=== PATIENT | female | born 1935 | race Caucasian/White ===

== ENCOUNTER → 2016-09-10 | Outpatient (CLI) | payer MEDICARE, BC ==
[~2016-09-10] MED LIST: FERROUS SU325 MG/TAB PO; FOLIC ACID 40400 MCG PO; MERIBIN5 MG PO; MULTI VITAMINS1 TAB PO; VITAMIN B122500 MCG PO; VITAMIN C500 MG PO; VITAMIN D1000 IU PO
== END ==
LOC: MC.RAD 11:10
DX: Z12.31 Encounter for screening mammogram for malignant neoplasm of breast (principal)

== ENCOUNTER → 2017-09-15 | Outpatient (CLI) | payer MEDICARE, BC | LOC: COL.VAS 10:23 | DX: E78.00 Pure hypercholesterolemia, unspecified (principal); H53.9 Unspecified visual disturbance; I87.2 Venous insufficiency (chronic) (peripheral); R06.09 Other forms of dyspnea ==

== ENCOUNTER → 2017-10-15 | Outpatient (CLI) | payer MEDICARE, BC | LOC: MC.RAD 10:49 | DX: Z12.31 Encounter for screening mammogram for malignant neoplasm of breast (principal) ==

== ENCOUNTER 2018-06-28 05:09 | Inpatient (IN) | payer MEDICARE, BC ==
[~2018-06-28] VITALS: Ht 165.1 cm; Wt 107.7 kg
[2018-06-29 08:50] VITALS: BP 136/46; PULSE 50; TEMP 97.8
--- NOTE | 2018-06-29 09:30 | NUR ---
Pt arrived to unit, settled and oriented to room and schedule. Physcial assessment completed and WNL. Pt does c/o SOB at times, none presently, pt on RA. Tele applied. INT started to , site free of redness, swelling. pt at bedside. Education provided on Afib patho adn treatmnet. No furtehr needs, call light in reach
[2018-06-29] MEDS ORDERED: COSAMIN DS 4001 CA1 PO (09:41)
[2018-06-29] MEDS ORDERED: ZEBETA10 MG PO (09:43)
[2018-06-29] MEDS ORDERED: ELIQUIS 5MG PO (09:43)
[2018-06-29 09:45] LABS: INR 1.5 (0.8-3.0); PROTHROMBIN TIME 17.4 SECONDS (9.7-12.8)
[2018-06-29 09:46] LABS: BASO % 0.6 % (0.0-2.0); EOS # 0.2 (0.0-0.7); EOS % 2.6 % (0-4.0); GRAN % 57.8 % (42.2-75.2); LYMPH # 1.5 (1.2-3.4); LYMPH % 21.9 % (20.0-51.0); MEAN CELL VOLUME 95 fl (80.0-100.0); MEAN CORPUSCULAR HEMOGLOBIN 31 pg (27.0-31.0); MEAN CORPUSCULAR HGB CONC 33 g/dl (33.0-37.0); MEAN PLATELET VOLUME 11.2 fl (7.4-10.4); MONO # 1.2 (0.1-0.6); MONO % 16.8 % (1.7-9.3); PLATELET COUNT 174 K/mm3 (130-400); RED BLOOD COUNT 3.87 M/mm3 (4.10-5.30); REDCELL DISTRIBUTION WIDTH-CV 14.2 % (11.5-14.5)
[2018-06-29 09:47] LABS: HEMATOCRIT 36.8 % (37.0-47.0)
[2018-06-29 09:51] LABS: ALBUMIN 3.7 gm/dL (3.5-5.0); BILIRUBIN,TOTAL 0.3 mg/dL (0.0-1.0); CALCIUM 9.4 mg/dL (8.4-10.2); CREATININE, serum 0.8 mg/dL (0.52-1.25); POTASSIUM 4.3 mmol/L (3.4-5.0); TOTAL PROTEIN 6.2 gm/dL (6.4-8.2)
[2018-06-29 11:58] VITALS: BP 144/55; PULSE 46; TEMP 97.4
[2018-06-29 15:34] VITALS: BP 145/48; PULSE 46; TEMP 98.2
--- NOTE | 2018-06-29 17:13 | NUR ---
Through shift pt has denied SOB, chest pain, palpitations. Pt has had steady stream of visitors. she walked hallways briefly. VItals stable. no concerns, call light in reach
--- NOTE | 2018-06-29 19:19 | NUR ---
Report given to Bianca BOYCE, pt denies needs
[2018-06-29 19:20] VITALS: BP 153/53; PULSE 63; TEMP 97.6
[2018-06-29 20:00] VITALS: BP 153/53; PULSE 53; TEMP 97.6
--- NOTE | 2018-06-29 21:50 | NUR ---
Patient assessed at this time. Denies having pain and discomfort. Denies having SOB at rest, but states she does with exertion. Wears CPAP at night with supplemental oxygen at 2.5 L/min. RT notified patient brought personal CPAP in and requested set up. Denies havign any questions or concerns at this time. Sitting up in recliner watching TV. Call light is within reach.
[2018-06-29 23:38] VITALS: BP 142/64; PULSE 46; TEMP 98.8
--- NOTE | 2018-06-30 02:27 | NUR ---
Call placed to Dr. Ross to update on heart rate. Heart rate had been staying in the 40s, but has been staying between 35-38 for a while, with a dip noted as low as 32. No new orders received at this time.
[2018-06-30 03:36] VITALS: BP 142/51; PULSE 41; TEMP 98.6
--- NOTE | 2018-06-30 03:53 | NUR ---
Resting in bed withe eyes closed. Continues to have bradycardia, mid 30s to low 40s. Denies feeling lightheaded, dizzy, SOB, and chest pain. Denies having any questions or concerns at ths time. Resting in bed with eyes closed at this time. Call light is within reach.
--- NOTE | 2018-06-30 06:12 | NUR ---
Continues to deny having pain and discomfort. Heart rate continues to run in the mid to upper 30s. Voices no needs or concerns. Wearing CPAP (brought from home) with 2.5 L/min of supplemental oxygen. Resting in bed with eyes closed at this time. Call light is within reach.
[2018-06-30 06:16] LABS: BASO # 0.1 (0.0-0.2); BASO % 0.7 % (0.0-2.0); EOS # 0.2 (0.0-0.7); EOS % 2.8 % (0-4.0); GRAN # 4.5 (1.4-6.5); GRAN % 59.4 % (42.2-75.2); HEMOGLOBIN 11.3 g/dl (12.5-16.0); LYMPH # 1.7 (1.2-3.4); LYMPH % 22.4 % (20.0-51.0); MEAN CELL VOLUME 95 fl (80.0-100.0); MEAN CORPUSCULAR HEMOGLOBIN 31 pg (27.0-31.0); MEAN CORPUSCULAR HGB CONC 32 g/dl (33.0-37.0); MEAN PLATELET VOLUME 11.2 fl (7.4-10.4); MONO # 1.1 (0.1-0.6); MONO % 14.3 % (1.7-9.3); PLATELET COUNT 169 K/mm3 (130-400); RED BLOOD COUNT 3.69 M/mm3 (4.10-5.30); REDCELL DISTRIBUTION WIDTH-CV 14.1 % (11.5-14.5)
[2018-06-30 06:27] LABS: CALCIUM 8.9 mg/dL (8.4-10.2); CREATININE, serum 0.74 (0.52-1.25); POTASSIUM 4.1 mmol/L (3.4-5.0)
--- NOTE | 2018-06-30 06:31 | NUR ---
Patient has been receiving PRN Ativan per detox protocol about every 2 hours throughout the night. Received PRN Hydralazine twice for elevated BP. Received PRN Zofran twice as requested for nausea. Denies having any questions or concerns at this time. Resting in bed with eyes closed at this time. Call light is within reach.
[2018-06-30 07:24] VITALS: BP 129/35; PULSE 42; TEMP 97.5
--- NOTE | 2018-06-30 08:38 | NUR ---
Pt assessment complete. Pt sitting up in chair upon entry, she is A/O x3. Her breathing is even and unlabored on RA. Pt reports dyspnea on exertion, states this has been happening lately. Pt denies any pain. No palpitations or dizziness. Pt denies any needs at this time. Call light within reach.
--- NOTE | 2018-06-30 10:05 | NUR ---
Initial visit; Patient thanked for stopping and states that she is here for Sotalol trial and doing well.
[2018-06-30 12:31] VITALS: BP 116/42; PULSE 45; TEMP 98.3
--- NOTE | 2018-06-30 13:21 | NUR ---
SW met with patient about discharge plans. Patient lives independently at home with her . Patient's PCP is Dr Lee and she obtains prescriptions from [facility]. Patient denies difficulties obaining medications. Patient is independent with her ADLs and does not use any DME or home health services. Patient has a DPOA in EMR. SW does not anticipate any discharge needs.
[2018-06-30 15:08] VITALS: BP 129/38; PULSE 51; TEMP 97.6
[2018-06-30 19:08] VITALS: BP 134/48; PULSE 50; TEMP 98.5
--- NOTE | 2018-06-30 19:19 | NUR ---
Pt had uneventful day. No chest pain or palpitations. VSS. POC discussed with patient who verbalized understanding. Pt sitting playing cards with at this time.
--- NOTE | 2018-06-30 20:15 | NUR ---
Patient sitting in recliner watching tv. Assessment completed- denies pain, lungs clear, abdominal sounds active, pulses +3, some BLE edema trace. GIven evening medications. On telemetry, NSR with HR in 50-60s. No further needs at this time.
[2018-06-30 23:01] VITALS: BP 143/44; PULSE 50; TEMP 98.3
--- NOTE | 2018-07-01 | NUR ---
THIS NURSE RESUMED CARES FOR THIS PT AT THIS TIME. PT STATED SHE DIDNT NEED ANYTHING. PT WEARING PERSONAL CPAP AND LAYING IN BED.
[2018-07-01 03:36] VITALS: BP 115/60; PULSE 46; TEMP 98.3
[2018-07-01 06:02] LABS: BASO # 0.1 (0.0-0.2); BASO % 0.7 % (0.0-2.0); EOS # 0.2 (0.0-0.7); EOS % 2.5 % (0-4.0); GRAN # 4.3 (1.4-6.5); GRAN % 56.6 % (42.2-75.2); LYMPH # 1.9 (1.2-3.4); LYMPH % 24.3 % (20.0-51.0); MEAN CELL VOLUME 95 fl (80.0-100.0); MEAN CORPUSCULAR HEMOGLOBIN 30 pg (27.0-31.0); MEAN CORPUSCULAR HGB CONC 32 g/dl (33.0-37.0); MEAN PLATELET VOLUME 11.5 fl (7.4-10.4); MONO # 1.2 (0.1-0.6); MONO % 15.5 % (1.7-9.3); PLATELET COUNT 172 K/mm3 (130-400); RED BLOOD COUNT 3.62 M/mm3 (4.10-5.30)
[2018-07-01 06:07] LABS: HEMATOCRIT 34.3 % (37.0-47.0)
[2018-07-01 06:16] LABS: CALCIUM 8.9 mg/dL (8.4-10.2); CREATININE, serum 0.76 (0.52-1.25)
--- NOTE | 2018-07-01 07:00 | NUR ---
Received bedside report at shift change. Pt in bed with CPAP on and comfortable. No complaints at this time. Pt had no needs from nursing staff. Will continue to monitor.
--- NOTE | 2018-07-01 07:08 | NUR ---
PT HAD NO ISSUES OR CONERNS VOICED THIS AM. PLEASENT AND COOPERATIVE WITH CARES. APPEARED TO HAVE SLEPT WELL
[2018-07-01 07:32] VITALS: BP 155/68; PULSE 50; TEMP 97.6
--- NOTE | 2018-07-01 10:41 | NUR ---
Assessment documented with continued low heart rate due to Sotalol. Pt had no complaints of pain and received medications well. Upon flushing peripheral IV, noticed the line was infiltrated but will wait to start a new IV until potential doctor orders for new IV meds. Pt up to eat breakfast independently. Will continue to monitor.
[2018-07-01 11:24] VITALS: BP 137/47; PULSE 45; TEMP 97.8
[2018-07-01] MEDS ORDERED: ZEBETA 5MG5 MG PO (11:55)
[2018-07-01] MEDS ORDERED: TAMBOCOR 1100 MG/TAB PO (11:55)
--- NOTE | 2018-07-01 13:28 | NUR ---
Discharge teaching completed at this time. Discharge packet given, reviewed new patient medications sent to pharmacy, follow up appointment. Pt discharged with packet, all belongings. INT d/c'd by student nurse, shahla intact. Answered all questions. Escorted out via w/c by myself with all belongings, to drive home, criteria met.
== END 2018-07-01 13:37 | disposition home or self-care (01) | DRG 309 ==
LOC: MEDICAL 06-29 05:08
PROVIDERS: ADMIT Internal Medicine Cardiovascular Disease
DX: I48.0 Paroxysmal atrial fibrillation (principal); C85.90 Non-Hodgkin lymphoma, unspecified, unspecified site; Z79.01 Long term (current) use of anticoagulants; E78.00 Pure hypercholesterolemia, unspecified; G47.33 Obstructive sleep apnea (adult) (pediatric); I10 Essential (primary) hypertension; I49.3 Ventricular premature depolarization; R00.1 Bradycardia, unspecified; T44.7X5A Adverse effect of beta-adrenoreceptor antagonists, initial encounter

== ENCOUNTER → 2018-07-07 | Outpatient (CLI) | payer MEDICARE, BC ==
[~2018-07-07] MED LIST changes: +COSAMIN DS 4001 CA1 PO; +ELIQUIS 5MG PO; +TAMBOCOR 1100 MG/TAB PO; +ZEBETA 5MG5 MG PO; +ZEBETA10 MG PO
== END ==
LOC: COL.VAS 08:41
DX: I48.0 Paroxysmal atrial fibrillation (principal); I08.1 Rheumatic disorders of both mitral and tricuspid valves

== ENCOUNTER 2018-10-04 05:56 | Day surgery (SDC) | payer MEDICARE, BC ==
[~2018-10-04] VITALS: Ht 165.2 cm; Wt 101.2 kg
[2018-10-04] VITALS (13 sets, daily range): BP systolic 104–140; BP diastolic 42–55; PULSE 45–116; TEMP 97.4–98.3
[~2018-10-04 05:56] MED LIST changes: +B-121000 MCG PO; -VITAMIN B122500 MCG PO
[2018-10-04 06:58] LABS: HEMOGLOBIN 12.4 g/dl (12.5-16.0); MEAN CELL VOLUME 94 fl (80.0-100.0); MEAN CORPUSCULAR HEMOGLOBIN 30 pg (27.0-31.0); MEAN CORPUSCULAR HGB CONC 32 g/dl (33.0-37.0); MEAN PLATELET VOLUME 10.5 fl (7.4-10.4); PLATELET COUNT 201 K/mm3 (130-400); RED BLOOD COUNT 4.15 M/mm3 (4.10-5.30); REDCELL DISTRIBUTION WIDTH-CV 14.6 % (11.5-14.5)
[2018-10-04 07:09] LABS: CREATININE, serum 0.8 (0.52-1.25); POTASSIUM 4.3 mmol/L (3.4-5.0)
[2018-10-04 07:21] LABS: PROTHROMBIN TIME 11.8 SECONDS (9.7-12.8)
[2018-10-04] MEDS ORDERED: TAMBOCOR50 MG PO ×2 (08:03→10:46)
[2018-10-04] MEDS ORDERED: LASIX 20MG TABL20 MG PO (08:05)
[2018-10-04] MEDS ORDERED: K-DUR 10 MEQ T10 MEQ PO (08:06)
[2018-10-05 04:05] VITALS: BP 109/55; PULSE 76; TEMP 97.5
[2018-10-05 07:33] LABS: BASO % 0.3 % (0.0-2.0); EOS # 0.2 (0.0-0.7); EOS % 2.2 % (0-4.0); GRAN # 4.2 (1.4-6.5); GRAN % 57.4 % (42.2-75.2); HEMATOCRIT 39.5 % (37.0-47.0); HEMOGLOBIN 12.8 g/dl (12.5-16.0); LYMPH # 1.8 (1.2-3.4); LYMPH % 24.4 % (20.0-51.0); MEAN CELL VOLUME 92 fl (80.0-100.0); MEAN CORPUSCULAR HEMOGLOBIN 30 pg (27.0-31.0); MEAN CORPUSCULAR HGB CONC 32 g/dl (33.0-37.0); MEAN PLATELET VOLUME 10.6 fl (7.4-10.4); MONO # 1.1 (0.1-0.6); MONO % 15.3 % (1.7-9.3); PLATELET COUNT 223 K/mm3 (130-400); RED BLOOD COUNT 4.29 M/mm3 (4.10-5.30); REDCELL DISTRIBUTION WIDTH-CV 14.6 % (11.5-14.5)
[2018-10-05 07:44] LABS: CREATININE, serum 0.78 (0.52-1.25); POTASSIUM 4.1 mmol/L (3.4-5.0)
[2018-10-05 08:06] VITALS: BP 122/42; PULSE 55; TEMP 97.9
[2018-10-05] MEDS ORDERED: BETAPACE 80MG80 MG PO (10:54)
[2018-10-05] MEDS ORDERED: CEPHALEXIN500 M1 PO (10:55)
[2018-10-05 14:23] VITALS: BP 149/55; PULSE 52; TEMP 97.5
== END 2018-10-05 14:15 | disposition home or self-care (01) ==
LOC: COL.CAR 05:56 → MEDICAL 11:56 → COL.CAR 10-05 14:15
PROVIDERS: Internal Medicine Cardiovascular Disease; Nurse Practitioner
DX: I49.5 Sick sinus syndrome (principal); I48.0 Paroxysmal atrial fibrillation; I10 Essential (primary) hypertension; G47.33 Obstructive sleep apnea (adult) (pediatric); I27.20 Pulmonary hypertension, unspecified; Z88.8 Allergy status to other drugs, medicaments and biological substances; E78.00 Pure hypercholesterolemia, unspecified; Z85.72 Personal history of non-Hodgkin lymphomas; Z79.01 Long term (current) use of anticoagulants; Z82.49 Family history of ischemic heart disease and other diseases of the circulatory system; Z83.3 Family history of diabetes mellitus
CPT/HCPCS: OP; C1785; C1894; C1898; J0690; J2250; J3010; J7030; Q9967

== ENCOUNTER 2020-10-24 14:57 | Inpatient (IN) | payer MEDICARE, BC ==
[~2020-10-24] VITALS: Ht 160 cm; Wt 99.9 kg
[~2020-10-24 14:57] MED LIST changes: +BETAPACE 80MG80 MG PO; +CEPHALEXIN500 M1 PO; +K-DUR 10 MEQ T10 MEQ PO; +LASIX 20MG TABL20 MG PO; +TAMBOCOR50 MG PO
[2020-12-23] VITALS (12 sets, daily range): BP systolic 106–146; BP diastolic 56–81; PULSE 63–75; TEMP 96–97.9
[2020-12-23] MEDS ORDERED: COZAAR 50MG50 MG/TAB PO (05:48)
[2020-12-23] MEDS ORDERED: ASPIRIN 81M81 MG/TA2 PO (05:48)
[2020-12-23] MEDS ORDERED: VITAMIN D31000 IU PO (05:50)
[2020-12-23] MEDS ORDERED: FERRO-TIME325 MG PO (05:50)
--- NOTE | 2020-12-23 11:15 | NUR ---
full assessment completed, see interventions for further info, O2 sat 100% on O2 2l, decreased to 1L
--- NOTE | 2020-12-23 11:30 | NUR ---
returned per bed from PACU, awake and alert but drowsy, IV infusing and placed on pump at 100ml/hr, O2 on at 2L/NC, occlusive dressing to right hip CD&I, FAMILIA macias and SCDS on bilaterally, denies pain or needs
--- NOTE | 2020-12-23 12:15 | NUR ---
dozing between checks, medicated with scheduled tylenol
--- NOTE | 2020-12-23 13:45 | NUR ---
offered something to eat but not yet ready, will call when she is ready
--- NOTE | 2020-12-23 14:50 | NUR ---
assisted up to bathroom and voided qs, ambulated with steady gait to and from the bathroom, back to bed and having clear liquids
--- NOTE | 2020-12-23 17:32 | NUR ---
have tried numerous times to obtain temp both oral and axillary, at this time axillary temp was 94.5
[2020-12-24 03:40] VITALS: BP 121/52; PULSE 75; TEMP 97
[2020-12-24 06:43] LABS: HEMOGLOBIN 10.4 g/dl (12.5-16.0)
[2020-12-24 06:59] LABS: HEMATOCRIT 32.3 % (37.0-47.0)
[2020-12-24 07:13] VITALS: BP 112/45; PULSE 72; TEMP 97.7
--- NOTE | 2020-12-24 08:39 | NUR ---
PT RESTING QUIETLY IN BED, LIZETH ARELLANO ROUNDED ON PT THIS AM. PT WOULD LIKE TO BE TRANSFERED TO SWING BED TO [place] AFTER STAY HERE. TALENT DEVELOPMENT MANAGER NOTIFIED. DRESSING TO LEFT HIP CDI. PT IS A/O X3, PAIN CONTROLLED WITH PO MEDS AT THIS TIME.
--- NOTE | 2020-12-24 09:31 | NUR ---
PETTY met with the patient to discuss discharge plan. [place] [address] [place] with her , Robert (ph#[phone]). She reports independence with ADLs and has a FWW, cane, CPAP, and an oxygen concentrator from [facility]. The patient's PCP is Dr. Yaya Lee and she receives her medications from [facility]. She reports no difficulties obtaining her meds. The patient does not have a DPOA-HC, but she states that she does have one completed and that it designates her . She states that she provided a copy to the hospital staff. SW checked the patient's chart and only a Living Will was in the chart. SW to inform the patient. The patient had a right hip replacement. The patient states that she would like to go to [facility] upon discharge for continued rehab. She states that her can transport her there. PETTY discussed having a second preference, in the event [facility] cannot take. The patient chose [facility] as her second preference. PETTY contacted Sara at [facility] and left her a voicemail, giving her the referral. PETTY contacted and faxed a referral to Kaylin at [facility]. Awaiting screens. PETTY contacted and reviewed the above with the patient's , Robert. Robert is in agreement to the plan. *Discharge plan: SB or SNF*
--- NOTE | 2020-12-24 10:07 | NUR ---
Initial visit; Patient thanked Program Manager Rn for looking in on her, offering prayer and God's blessings for her healing.
[2020-12-24 11:29] VITALS: BP 119/51; PULSE 72; TEMP 97.5
--- NOTE | 2020-12-24 11:38 | NUR ---
Sara, at [facility], reports that they are full at this time and is not sure if they will have any openings by . Kaylin, at [facility], reports that they are able to accept the patient. SW met with the patient to update. The patient is open to going to [facility], if [facility] does not have a bed open up.
[2020-12-24 16:00] VITALS: BP 135/54; PULSE 73; TEMP 97.7
--- NOTE | 2020-12-24 16:28 | NUR ---
DRESSING CHAnge COMPLETE, PT TOLERATED WELL. INCISION CDI WITH WELL APPROXIMATED EDGES.
--- NOTE | 2020-12-24 18:51 | NUR ---
REPORT TO ISIDRO BOYCE.
[2020-12-24 19:08] VITALS: BP 126/57; PULSE 71; TEMP 98.6
[2020-12-25 04:15] VITALS: BP 111/54; PULSE 70; TEMP 97.5
--- NOTE | 2020-12-25 05:18 | NUR ---
Resting quietly, VS stable, dressing to R hip c/d/i, denies pain, ice in use, call montejo w/i reach.
[2020-12-25 06:58] LABS: HEMATOCRIT 31.2 % (37.0-47.0); HEMOGLOBIN 9.9 g/dl (12.5-16.0)
[2020-12-25 08:00] VITALS: BP 116/54; PULSE 70; TEMP 97.8
--- NOTE | 2020-12-25 09:18 | NUR ---
PT UP TO RECLINER FOR BREAKFAST. PAIN WELL CONTROLLED WITH PO PAIN NEDS. PT PARTICIPATED IN AM THERAPY. RETURNED TO ROOM WITH SBA. DRESSING CDI. PT TO TRANSFER TO SWING BED IN [place].
[2020-12-25 12:00] VITALS: BP 127/67; PULSE 72; TEMP 98
--- NOTE | 2020-12-25 12:02 | NUR ---
Sara, at [facility], reports that they will have a discharge there tomorrow and may have a bed come available. The patient is to tentatively d/c tomorrow. PETTY notified and faxed updates to Kaylin at [facility]. PETTY met with the patient to update. The patient is agreeable to [facility], if a bed at [facility] does not open up. PETTY presented and read the IM form outloud to her. The patient verbalized understanding and signed the form. PETTY provided her with a copy.
[2020-12-25 16:00] VITALS: BP 119/60; PULSE 67; TEMP 97.3
--- NOTE | 2020-12-25 16:43 | NUR ---
DRESSING CHANGE COMPLETE PER ORDERS. INCISION CDI WITH WELL APPROXIMATED EDGES.
[2020-12-25 19:33] VITALS: BP 124/62; PULSE 77; TEMP 97.6
--- NOTE | 2020-12-25 20:00 | NUR ---
PATIENT IS CALM IN THE ROOM.PATIENT DENIES O=PAIN.SAFETY MEASURES IN PLACE.NO OTHER NEEDS AT THIS TIME.
[2020-12-25 23:52] VITALS: BP 112/58; PULSE 80; TEMP 98.3
[2020-12-26 03:53] VITALS: BP 124/54; PULSE 69; TEMP 97.8
--- NOTE | 2020-12-26 04:55 | NUR ---
PATIENT HAD A CALM NIGHT.DENIES PAIN.SAFETY MEEASURES IN PLACE.NO OTHER NEEDS AT THIS TIME.
[2020-12-26] MEDS ORDERED: ASPI325T6 PO (07:09)
[2020-12-26] MEDS ORDERED: ULTRAM 50MG TAB50 MG PO (07:09)
[2020-12-26] MEDS ORDERED: ROXICODONE 55 MG/TAB PO (07:10)
[2020-12-26] MEDS ORDERED: SENOKOT S 50 MG1 TAB PO (07:10)
[2020-12-26 08:00] VITALS: BP 149/66; PULSE 70; TEMP 97.5
--- NOTE | 2020-12-26 09:24 | NUR ---
Sara, at [facility], reports that they had a bed come available and that they are able to accept the patient today. The accepting provider and the doc-to-doc call will need to be to STEFFANIE Olivier. Sara states that Lakeisha comes in at 1100 and to contact her then. She requests transportation between [id number]. PETTY notified the patient's RN. The patient's RN to contact the attending. PETTY met with the patient to update. The patient confirms that she would prefer to pursue with [facility]. PETTY contacted and updated her , Robert. Robert plans to be at the hospital at 1200 to transport the patient. PETTY notified the patient's RN.
--- NOTE | 2020-12-26 09:27 | NUR ---
PT UP TO RECLINER FOR BREAKFAST. OUT TO [facility] FOR THERAPY. PT AMBULATED WITH STEADY GAIT. PAIN CONTROLLED WITH PO PAIN MEDS AT THIS TIME. PT IS A/O X3. VSS, NOTIFIED LIZETH ARELLANO OF DOC TO DOC CALL NEEDED FOR TRANSFER TO [facility].
--- NOTE | 2020-12-26 11:55 | NUR ---
REPORT TO CHARLOTTE ABERNATHY. PT TAKEN OUT TO POV PER WHEEL CHAIR AT THIS TIME.
--- NOTE | 2020-12-26 13:13 | NUR ---
The patient discharged today, 12/26, to [facility]. Transportation was by private vehicle, via the patient's . PETTY updated Kaylin at [facility]. No additional needs at this time.
== END 2020-12-26 11:59 | disposition swing bed (61) | DRG 470 ==
LOC: SURG 12-11 07:30 → INPTSU 12-23 05:11 → SURG 12-23 07:30
PROVIDERS: ADMIT Orthopaedic Surgery
PROC: 0SR90JZ Replacement of Right Hip Joint with Synthetic Substitute, Open Approach (ICD-10-PCS; principal; 2020-12-23 07:30)
DX: M16.11 Unilateral primary osteoarthritis, right hip (principal); C85.90 Non-Hodgkin lymphoma, unspecified, unspecified site; M41.86 Other forms of scoliosis, lumbar region; M43.16 Spondylolisthesis, lumbar region; I48.91 Unspecified atrial fibrillation; I08.1 Rheumatic disorders of both mitral and tricuspid valves; I10 Essential (primary) hypertension; G47.33 Obstructive sleep apnea (adult) (pediatric); K21.9 Gastro-esophageal reflux disease without esophagitis; Z20.822 Contact with and (suspected) exposure to COVID-19; M54.5 Low back pain; M25.512 Pain in left shoulder; Z79.891 Long term (current) use of opiate analgesic; Z96.642 Presence of left artificial hip joint; Z95.0 Presence of cardiac pacemaker
CPT/HCPCS: A4314; A9284; C1713; C1776; J0690; J1100; J1885; J2250; J2405; J2704; J3010; J7030; J7120

== ENCOUNTER → 2020-11-15 | Outpatient (CLI) | payer MEDICARE, BC ==
[~2020-11-15] MED LIST changes: +ASPI325T6 PO; +ASPIRIN 81M81 MG/TA2 PO; +COZAAR 50MG50 MG/TAB PO; +FERRO-TIME325 MG PO; +ROXICODONE 55 MG/TAB PO; +SENOKOT S 50 MG1 TAB PO; +ULTRAM 50MG TAB50 MG PO; +VITAMIN D31000 IU PO
== END ==
LOC: COL.RAD 08:01
DX: M48.061 Spinal stenosis, lumbar region without neurogenic claudication (principal); M47.816 Spondylosis without myelopathy or radiculopathy, lumbar region

== ENCOUNTER → 2021-10-23 | Outpatient (CLI) | payer MEDICARE, BC | LOC: MC.RAD 16:14 | DX: Z12.31 Encounter for screening mammogram for malignant neoplasm of breast (principal) ==